=== PATIENT | male | born 1985 | race Caucasian/White ===

== ENCOUNTER 2017-12-27 18:06 | Emergency (ER) | payer OTHER ==
[~2017-12-27 18:06] MED LIST: LORT5TAB PO; Z.0.NO CURRENT MEDS
[2017-12-27 18:20] VITALS: BP 126/78; PULSE 72; RESP 20; TEMP 98.5; O2SAT 98
[2017-12-27] MEDS ORDERED: CLIN300C5 PO (18:36)
[2017-12-27] MEDS ORDERED: CIPR-9 PO (18:36)
--- NOTE | 2017-12-27 18:37 | PD ---
HPI Chief Complaint: Skin Problem Time Seen by Provider: 18:24 Travel History International Travel<30 days: No Contact w/Intl Traveler<30days: No Traveled to known affect area: No History of Present Illness HPI This is a 32-year-old male here with possible infection to his left hand. 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 He reports no possibility of retained foreign body. He washed the wound thoroughly. The next day the area began to swell and become painful. It spontaneously resolved. Yesterday the swelling and pain returned. Denies fever chills. He has normal sensation and full range of motion of the hand and fingers. [facility] Past Medical History Medical History: Denies Significant Hx Musculoskeletal: Yes (HAD SYNOVIAL FLUID DRAINED FROM RIGHT KNEE) Social History Alcohol Use: Yes (RARE) Tobacco Use: No Substance Use: No Allergies-Medications (Allergen,Severity, Reaction): Coded Allergies: naproxen (Unverified Allergy, Severe, HIVES, 04/17/17) penicillin G (Unverified Allergy, Severe, HIVES, 04/17/17) Reported Meds & Prescriptions Reported Meds & Active Scripts Active Review of Systems Except as stated in HPI: all other systems reviewed are Neg General / Constitutional: No: Fever Eyes: No: Visual changes HENT: No: Headaches Cardiovascular: No: Chest Pain or Discomfort Respiratory: No: Shortness of Breath Gastrointestinal: No: Abdominal Pain Genitourinary: No: Dysuria Physical Exam Narrative GENERAL: Alert and well-appearing 32-year-old male SKIN: Warm and dry. HEAD: Normocephalic. EYES: No injection or drainage. NECK: Supple CARDIOVASCULAR: Regular rate and rhythm RESPIRATORY: Breath sounds equal bilaterally. No accessory muscle use. GASTROINTESTINAL: Abdomen soft, non-tender, nondistended. MUSCULOSKELETAL: No cyanosis. Left hand: Mild swelling, warmth and erythema to the dorsal aspect of the hand localized around the second MCP joint. No open wounds or evidence of a puncture wound. No fluctuance, induration, lymphangitis. He can freely move the fingers and make a fist. Normal sensation. Brisk cap refill. Data Data Last Documented VS Vital Signs Date Time Temp Pulse Resp B/P (MAP) Pulse Ox O2 Delivery O2 Flow Rate FiO2 12/27/17 18:20 98.5 72 20 126/78 (94) 98 MDM Medical Decision Making Medical Screen Exam Complete: Yes Emergency Medical Condition: Yes Differential Diagnosis Cellulitis, abscess, subcutaneous retained foreign body Narrative Course This is a 32-year-old male here with cellulitis to the left hand. Patient is nontoxic appearing. Patient reports the injury was caused by tiny puncture wound from a palm frond or sharp piece of wood. He denies possibility of retained foreign body. He refuses x-ray. Risks discussed. Given the description of the puncture wound I do not suspect we would see anything on x- ray. Patient will be treated for cellulitis with clindamycin and Cipro for Pseudomonas coverage given puncture wound by wood. He will be referred to follow-up with primary doctor and hand surgeon Diagnosis Primary Impression: Cellulitis of left hand Referrals: Hand Surgeon Primary Care Physician Additional Instructions: Antibiotics as directed. Return if he develop new or worsening symptoms. Follow-up with your primary doctor for recheck. Scripts Ciprofloxacin (Cipro) 500 Mg Tab 500 MG PO BID for Infection for 10 Days, #20 TAB 0 Refills Prov: Jany Pan 12/27/17 Clindamycin (Clindamycin) 300 Mg Cap 300 MG PO Q6H for Infection for 10 Days, #40 CAP 0 Refills Prov: Jany Pan 12/27/17 Disposition: 01 DISCHARGE HOME Condition: Stable Jany Pan Dec 27, 2017 18:37
== END 2017-12-27 18:45 | disposition home or self-care (01) ==
LOC: PHEFT 18:06
DX: L03.114 Cellulitis of left upper limb (principal); Z88.0 Allergy status to penicillin; Z88.8 Allergy status to other drugs, medicaments and biological substances
CPT/HCPCS: 99283